=== PATIENT | male | born 1990 | race Caucasian/White ===

== ENCOUNTER 2016-08-07 22:17 | Emergency (ER) | payer MEDICAID | END 2016-08-07 22:57 | disposition left against medical advice (07) | LOC: ED 22:42 | DX: F10.10 Alcohol abuse, uncomplicated (principal) | CPT/HCPCS: 99281; 99283 ==

== ENCOUNTER 2016-08-09 10:11 | Observation (INO) | payer MEDICAID ==
[~2016-08-09] VITALS: Ht 160 cm; Wt 106.0 kg
[2016-08-09] MEDS ORDERED: ONDANSETRON 2MG/ML, 2ML IVPush ONE (11:30)
[2016-08-09] MEDS ORDERED: MORPHINE SULFATE 4 MG/ML, 1ML IVPush PRN (11:30)
[2016-08-09] MEDS ORDERED: SODIUM CHLORIDE 0.9% 1,000ML IVBOLUS ONE ×2 (11:30→14:00)
[2016-08-09] MEDS ORDERED: SODIUM CHLORIDE FLUSH 10ML SYR IVF ONE ×2 (11:30→14:00)
[2016-08-09] MEDS ORDERED: MORPHINE SULFATE 4 MG/ML, 1ML ONE (12:06)
[2016-08-09] MEDS ORDERED: ONDANSETRON 2MG/ML, 2ML ONE ×3 (12:06→17:39)
[2016-08-09] MEDS ORDERED: LORA2TAB99 PO (12:14)
[2016-08-09 14:35] LABS: BLOOD UREA NITROGEN 8 mg/dL (7-18)
[2016-08-09] MEDS ORDERED: MUPIROCIN OINT 2%, 22GM ONE (15:27)
[2016-08-09] MEDS ORDERED: BALANCED SALT OPHTH IRRIG SOLN 18ML ONE (15:27)
[2016-08-09] MEDS ORDERED: LIDOCAINE/PF 1.5%-EPI 1:200K, 30ML ONE (15:27)
[2016-08-09] MEDS ORDERED: FENTANYL PF 250 MCG/5ML ONE (15:46)
[2016-08-09] MEDS ORDERED: MIDAZOLAM 1 MG/ML, 2ML ONE (15:47)
[2016-08-09] MEDS ORDERED: PROPOFOL 10 MG/ML, 20ML ONE (16:32)
[2016-08-09] MEDS ORDERED: SUCCINYLCHOLINE 20 MG/ML, 10ML ONE (16:32)
[2016-08-09] MEDS ORDERED: POTASSIUM CHLORIDE 40 MEQ in SODIUM CHLORIDE 0.9% 1,000 ML IV SCH (17:30)
[2016-08-09] MEDS ORDERED: morphine SULFATE 10 MG/ML, 1ML IVPush PRN (17:30)
[2016-08-09] MEDS ORDERED: ONDANSETRON 2MG/ML, 2ML IVPush PRN (17:30)
[2016-08-09] MEDS ORDERED: ONDANSETRON ODT 4 MG PO PRN (17:30)
[2016-08-09] MEDS ORDERED: HYDROcodone/APAP 7.5-325MG/15ML UDC ONE (17:45)
[2016-08-09] MEDS ORDERED: POTASSIUM CHLORIDE 20 MEQ TAB.ER.PRT PO ONE (18:00)
[2016-08-09 18:08] VITALS: BP 146/91
[2016-08-09] MEDS: LACTATED RINGERS 1,000 ML IV SCH (19:48)
[2016-08-09 20:06] VITALS: BP 136/81
[2016-08-10 00:13] VITALS: BP 143/83
[2016-08-10] MEDS: LACTATED RINGERS 1,000 ML IV SCH ×2 (03:31→15:30)
[2016-08-10 04:28] VITALS: BP_SYST 148; BP_SYST 157; BP_DIAS 87; BP_DIAS 93
[2016-08-10 08:09] VITALS: BP 143/94
[2016-08-10 08:35] VITALS: BP 152/88
[2016-08-10] MEDS ORDERED: POTASSIUM CHLORIDE 20 MEQ TAB.ER.PRT PO ONE (11:00)
[2016-08-10 11:49] LABS: BLOOD UREA NITROGEN 4 mg/dL (7-18)
[2016-08-10] MEDS ORDERED: HYDR-3241 PO (14:56)
[2016-08-10 15:07] VITALS: BP 164/106
[2016-08-10 17:04] VITALS: BP 156/85
== END 2016-08-10 18:54 | disposition home or self-care (01) ==
LOC: ED 13:49 → INTOOBSV 14:52 → EDIP 14:52 → 4NOR 18:17
PROVIDERS: ADMIT Hospitalist; ATTEND Hospitalist
DX: S02.40EA Zygomatic fracture, right side, initial encounter for closed fracture (principal); S02.40CA Maxillary fracture, right side, initial encounter for closed fracture; S02.2XXA Fracture of nasal bones, initial encounter for closed fracture; F41.1 Generalized anxiety disorder; E87.6 Hypokalemia; K08.9 Disorder of teeth and supporting structures, unspecified; I10 Essential (primary) hypertension; Z91.14 Patient's other noncompliance with medication regimen; Z91.19 Patient's noncompliance with other medical treatment and regimen; Y04.0XXA Assault by unarmed brawl or fight, initial encounter; Y93.89 Activity, other specified; Y92.89 Other specified places as the place of occurrence of the external cause; Y99.8 Other external cause status
CPT/HCPCS: 21356; 36415; 70450; 70486; 72125; 80048; 82040; 85025; 93005; 96374; 96375; 99285; G0378; J0330; J2250; J2405; J2704; J3010; J3490; J7030; J7120

== ENCOUNTER 2017-01-28 08:36 | Emergency (ER) | payer MEDICAID ==
[~2017-01-28] VITALS: Ht 162.6 cm; Wt 95.0 kg
[~2017-01-28 08:36] MED LIST: HYDR-3241 PO; LORA2TAB99 PO
[2017-01-28 08:38] VITALS: BP 146/80
[2017-01-28] MEDS ORDERED: DIPH,PERTUSS(ACELL),TET VAC/PF 0.5 ML IM-VACC ONE ×2 (09:30→09:44)
== END 2017-01-28 10:00 | disposition home or self-care (01) ==
LOC: ED 09:57
DX: L73.9 Follicular disorder, unspecified (principal); L03.116 Cellulitis of left lower limb
CPT/HCPCS: 90471; 90715

== ENCOUNTER 2017-03-01 12:19 | Emergency (ER) | payer MEDICAID ==
[~2017-03-01] VITALS: Ht 162.6 cm; Wt 88.0 kg
[2017-03-01 12:24] VITALS: BP 124/76
[2017-03-01] MEDS ORDERED: KETOROLAC 30 MG/1 ML IM ONE (13:00)
[2017-03-01] MEDS ORDERED: METHOCARBAMOL 750 MG TABLET PO ONE (13:00)
[2017-03-01] MEDS ORDERED: METHOCARBAMOL 750 MG TABLET ONE (13:43)
[2017-03-01] MEDS ORDERED: KETOROLAC 30 MG/1 ML ONE (13:43)
== END 2017-03-01 13:58 | disposition home or self-care (01) ==
LOC: ED 13:40
DX: S39.012A Strain of muscle, fascia and tendon of lower back, initial encounter (principal); I10 Essential (primary) hypertension; X58.XXXA Exposure to other specified factors, initial encounter; Y93.89 Activity, other specified; Y92.89 Other specified places as the place of occurrence of the external cause; Y99.8 Other external cause status
CPT/HCPCS: 72110; 93005; 96372; 99284; J1885

== ENCOUNTER 2018-07-13 18:35 | Emergency (ER) | payer MEDICAID ==
[~2018-07-13] VITALS: Ht 162.6 cm; Wt 96.0 kg
[2018-07-13 18:40] VITALS: BP 159/97
[2018-07-13] MEDS ORDERED: IBUPROFEN 600 MG TABLET PO ONE (19:00)
[2018-07-13] MEDS ORDERED: IBUPROFEN 200 MG TABLET ONE (19:03)
--- NOTE | 2018-07-13 19:08 | NUR ---
pt medicated per mar.
--- NOTE | 2018-07-13 19:47 | NUR ---
pt d/c with d/c summary and scripts. all questions answered. pt ambulates to registration desk with steady gait for d/c home. pt denies any other needs pertaining to this visit.
== END 2018-07-13 19:49 | disposition home or self-care (01) ==
LOC: ED 19:38
DX: K02.9 Dental caries, unspecified (principal); I10 Essential (primary) hypertension; F41.1 Generalized anxiety disorder; Z72.9 Problem related to lifestyle, unspecified
CPT/HCPCS: 99283

== ENCOUNTER 2019-03-08 18:10 | Emergency (ER) | payer SELFPAY ==
[~2019-03-08] VITALS: Ht 162.6 cm; Wt 96.9 kg
[2019-03-08 18:18] VITALS: BP 144/90
--- NOTE | 2019-03-08 18:32 | NUR ---
Pt reports he noticed blood in his urine & blood coming out of urethra after urinating all day today. Denies pain of any type. No pertinent med hx. Urine collected, ordered & sent. Await ER MD [email or web address].
[2019-03-08 18:48] LABS: MICROSCOPIC AUTO
[2019-03-08 18:53] LABS: CULTURE INDICATED? YES
--- NOTE | 2019-03-08 19:34 | NUR ---
Pt dc'd to self care. Pt alert, oriented and ambulatory at time of d/c. Pt educated on follow-up, home care and S/Sx to return. Pt VU. Pt ambulated out of ER.
== END 2019-03-08 19:38 | disposition home or self-care (01) ==
LOC: ED 19:25
DX: R31.0 Gross hematuria (principal)
CPT/HCPCS: 81001; 87086; 99283